=== PATIENT | male | born 1995 | race Caucasian/White ===

== ENCOUNTER 2020-05-04 16:46 | Emergency (ER) | payer SELFPAY ==
[~2020-05-04] VITALS: Ht 175.3 cm; Wt 86.4 kg
[2020-05-04] MEDS ORDERED: normal saline 1000ml 1,000 ML IVB ONE (16:58)
[2020-05-04 17:20] LABS: BASOPHILS % (AUTO) 0.4 % (0-1); EOSINOPHILS % (AUTO) 0.3 % (0-6); HEMATOCRIT 45.6 % (42.0-52.0); HEMOGLOBIN 15.6 g/dl (14.0-17.9); LYMPHOCYTES # (AUTO) 1.8 X10'3 (1.1-4.8); LYMPHOCYTES % (AUTO) 14.2 % (21-51); MEAN CORPUSCULAR HEMOGLOBIN 31.2 PG (27.0-31.0); MEAN CORPUSCULAR HGB CONC 34.3 g/dL (33.0-36.5); MEAN CORPUSCULAR VOLUME 90.9 FL (78-98); MONOCYTES # (AUTO) 1.2 X10'3 (0-0.9); MONOCYTES % (AUTO) 9.6 % (2-12); NEUTROPHILS # (AUTO) 9.7 X10'3 (1.8-7.7); NEUTROPHILS % (AUTO) 75.5 % (42-75); PLATELET COUNT 321 X10'3 (140-440); RED BLOOD COUNT 5.01 X10'6 (4.70-6.10); RED CELL DISTRIBUTION WIDTH 13.6 % (11.5-14.5); WHITE BLOOD COUNT 12.8 X10'3 (4.5-11.0)
[2020-05-04 17:34] LABS: ALANINE AMINOTRANSFERASE 34 U/L (12-78); ALBUMIN 4.5 G/DL (3.4-5.0); ALBUMIN/GLOBULIN RATIO 1.3 (1.1-1.5); ALKALINE PHOSPHATASE 114 IU/L (46-116); ANION GAP 19 (8-16); ASPARTATE AMINO TRANSFERASE 40 U/L (10-37); BILIRUBIN,TOTAL 2.2 MG/DL (0.1-1.0); BLOOD UREA NITROGEN 25 MG/DL (7-18); BUN/CREATININE RATIO 20.3 (5.4-32.0); CALCIUM 9.8 MG/DL (8.5-10.1); CHLORIDE 100 MMOL/L (99-107); CREATININE 1.23 MG/DL (0.60-1.10); GLUCOSE 76 MG/DL (70-104); POTASSIUM 3.5 MMOL/L (3.5-5.1); SODIUM 137 MMOL/L (135-145); TOTAL CARBON DIOXIDE 17.7 MMOL/L (24-32); TOTAL PROTEIN 8.1 G/DL (6.4-8.2); eGFR 73 ML/MIN
[2020-05-04] MEDS ORDERED: ketorolac trometh. 30mg/ml inj. IV ONE (17:35)
[2020-05-04 17:41] LABS: CLARITY,URINE SLIGHTLY CLOUDY (Clear); GLUCOSE, URINE NEGATIVE (Neg); KETONES,URINE 40 mg/dl (Neg); LEUKOCYTE ESTERASE ,URINE NEGATIVE (Neg); NITRITES, URINE NEGATIVE (Neg); OCCULT BLOOD,URINE NEGATIVE (Neg); PROTEIN,URINE 30 mg/dl (Neg); UROBILINOGEN,URINE 0.2 E.U/dL (0.2-1.0)
--- NOTE | 2020-05-04 17:45 | NUR ---
Wolfgang quezada. Case #[id number].
[2020-05-04 17:46] LABS: COLOR,URINE DARK YELLOW (Yellow); UA COLLECTION TYPE CLN CATCH MIDSTREAM
[2020-05-04 17:49] LABS: BACTERIA,URINE FEW /HPF (Neg); COARSE GRANULAR CAST 0-3 /LPF (NEGATIVE); HYALINE CASTS 0-3 /LPF (NEGATIVE); MUCUS STRANDS MANY /LPF (Neg); RBC,URINE 0-2 /HPF (0-2); SQUAMOUS EPITHELIAL CELL,UR FEW /LPF (FEW)
[2020-05-04 18:00] LABS: ETHANOL < 0.010 GM/DL (0.0-0.010)
[2020-05-04] MEDS ORDERED: LIDO700A32 TOP (18:30)
[2020-05-04] MEDS ORDERED: NAPR-56 PO (18:30)
[2020-05-04] MEDS ORDERED: LIDOcaine 5% patch TP SCH (18:40)
[2020-05-04 19:07] VITALS: BP 116/67
== END 2020-05-04 19:09 | disposition home or self-care (01) ==
LOC: ER 16:47
DX: S20.211A Contusion of right front wall of thorax, initial encounter (principal); R07.9 Chest pain, unspecified; Z59.0 Homelessness; Z88.1 Allergy status to other antibiotic agents; Z79.899 Other long term (current) drug therapy; X58.XXXA Exposure to other specified factors, initial encounter; Y93.9 Activity, unspecified; Y92.89 Other specified places as the place of occurrence of the external cause; Y99.8 Other external cause status; Y09 Assault by unspecified means
CPT/HCPCS: 36415; 71101; 80053; 80320; 81001; 83605; 85025; 87088; 96374; 99284; J1885; J7030

== ENCOUNTER 2020-05-08 07:06 | Emergency (ER) | payer SELFPAY ==
[~2020-05-08] VITALS: Ht 170.2 cm; Wt 80.0 kg
[~2020-05-08 07:06] MED LIST: LIDO700A32 TOP; NAPR-56 PO
[2020-05-08 08:20] VITALS: BP 124/87
[2020-05-08] MEDS ORDERED: acetaminophen 325mg tablet PO ONE (08:35)
[2020-05-08] MEDS ORDERED: ibuprofen tablet 400 MG TABLET PO ONE (08:35)
== END 2020-05-08 08:58 | disposition home or self-care (01) ==
LOC: ER 07:07
DX: S90.822A Blister (nonthermal), left foot, initial encounter (principal); S90.821A Blister (nonthermal), right foot, initial encounter; J45.909 Unspecified asthma, uncomplicated; F17.200 Nicotine dependence, unspecified, uncomplicated; F15.90 Other stimulant use, unspecified, uncomplicated; Z59.0 Homelessness; Z88.1 Allergy status to other antibiotic agents; Z79.899 Other long term (current) drug therapy; X58.XXXA Exposure to other specified factors, initial encounter; Y93.89 Activity, other specified; Y92.89 Other specified places as the place of occurrence of the external cause; Y99.8 Other external cause status
CPT/HCPCS: 99283